=== PATIENT | female | born 1990 | race Hispanic/Latino ===

== ENCOUNTER 2023-04-26 08:35 | Emergency (ER) | payer SELFPAY ==
--- OUTSIDE RECORDS SUMMARY | 2023-04-26 08:39 | XMS REPORT | Continuity of Care Document ---
Demographics Address [address] [place] [address] Mobile ) Email Address Preferred Language Malay; Castilian Marital Status Unknown Mosque Affiliation Unknown Race Unknown Additional Race(s) White Ethnic Group Unknown Author Name Unknown Address [address] [facility] [place] [address] [facility] [address] [facility] [address] [place] [address] Care Team Providers Care Research Microbiologist Name Role Phone Sallie Malik Primary Care Physicia n SALLIE LOMBARDO Attending Clinician Unavail able Sallie Malik Attending Clinician + Nurse, Clay Liocna Exp Cprit Obgyn Attending Clini antione Unavailable Doctor Unassigned, Frannie Attending Clinician U PATTI Pena Attending Clinician Unavaila ble [facility] Attending Clinician Unava Patti Joe CNM Attending Clinician [phone] NHAN JONES Attending Clinician Unavailab Nhan Rondon Attending Clinician + [phone] Leslie Schroeder Attending Clinician [phone] Girish Tavares DO Attending Clinician [phone] Merna Malik Attending Clinician [phone] Greg TUCKER, Sharla Attending Clinician + Betina Ibarra MD Attending Clinician [phone] Res-Colpo/Leep, [facility] Attending Clinician Un available David Steward MD Attending Clinician [phone] DAVID STEWARD Attending Clinician Unavailable LESLIE MONTES Attending Clinician Unavailabl e Payers Payer Name Policy Type Policy Number Effective Date Expirati on Date Source [employer] 0-100% [id number] 2023 00:00:00 Problems Condition Name Condition Details Condition Category Status Onset Date Resolution Date Last Treatment Date Treating Clinician Comments Source Atypical squamous cell changes of undetermin ed significan ce (ASCUS) on cervical cytology with negative high risk human papilloma virus (HPV) test result Atypical squamous cell changes of undetermin ed significan ce (ASCUS) on cervical cytology with negative high risk human papilloma virus (HPV) test result Disease Active 10-06 00:00: 00 Overview: Formattin g of this note might be different from the original. Will need repeat pap in 3 years 2023 [facility] Atypical squamous cell changes of undetermin ed significan ce (ASCUS) on vaginal cytology Atypical squamous cell changes of undetermin ed significan ce (ASCUS) on vaginal cytology Disease Active 09-20 00:00: 00 Overview: Formattin g of this note might be different from the original. colpo- no CINASCCP guideline s need pap at 12 and 24 months [facility] Other general counseling and advice for contracept gabe management Other general counseling and advice for contracept gabe management Disease Active 09-15 00:00: 00 [facility] Low grade squamous intraepith elial lesion on cytologic smear of cervix (LGSIL) Low grade squamous intraepith elial lesion on cytologic smear of cervix (LGSIL) Disease Active 09-15 00:00: 00 [facility] BMI 32.0-32.9, adult BMI 32.0-32.9, adult Disease Active 09-15 00:00: 00 [facility] Well woman exam Well woman exam Disease Active 08-22 00:00: 00 [facility] Breast lesion Breast lesion Disease Active 08-22 00:00: 00 [facility] Overweight (BMI 25.0-29.9) Overweight (BMI 25.0-29.9) Disease Active 08-22 00:00: 00 [facility] BMI 28.0-28.9, adult BMI 28.0-28.9, adult Disease Active 08-22 00:00: 00 [facility] Depo-Prove ra contracept gabe status Depo-Prove ra contracept gabe status Disease Active 08-22 00:00: 00 [facility] Papanicola ou smear of cervix with low grade squamous intraepith elial lesion (LGSIL) Papanicola ou smear of cervix with low grade squamous intraepith elial lesion (LGSIL) Disease Active 2016-05 00:00: 00 [facility] Class 1 obesity with body mass index (BMI) of 30.0 to 30.9 in adult, unspecifie d obesity type, unspecifie d whether serious comorbidit y present Class 1 obesity with body mass index (BMI) of 30.0 to 30.9 in adult, unspecifie d obesity type, unspecifie d whether serious comorbidit y present Disease Active 2016-05 00:00: 00 [facility] Allergies, Adverse Reactions, Alerts Allergy Name Allergy Type Status Severity Reaction(s) Onset Date Inactive Date Treating Clinician Comments Source NO KNOWN ALLERGIE S Drug Class Active [facility] Social History Social Habit Start Date Stop Date Quantity Comments [facility] 2023-02-14 00:00:00 2023-02-14 00:00:00 Current non-drinker of alcohol (finding) [facility] Exposure to SARS-CoV-2 (event) 2022-09-08 00:00:00 2022-09-18 09:30:00 Not sure [facility] Tobacco use and exposure 2022-05-11 00:00:00 2022-05-11 00:00:00 Smokeless tobacco non-user [facility] History of Social function 2021-08-24 00:00:00 2021-08-24 00:00:00 [facility] Sex Assigned At 1990 00:00:00 1990 00:00:00 [facility] Smoking Status Start Date Stop Date Source Never smoked tobacco [facility] Medications Ordered Medication Name Filled Medication Name Start Date Stop Date Current Medication? Ordering Clinician Indication Dosage Frequency Signature (SIG) Comments Components Source medroxyPROG ESTERone (DEPO-PROVE RA) syringe 150 mg 2022-02-14 16:30: 00 01-15 16:29 :00 Yes [id number] 150mg [facility] medroxyPROG ESTERone (DEPO-PROVE RA) syringe 150 mg 2022-02-14 16:30: 00 01-15 16:29 :00 Yes [id number] 150mg 150 mg, Intramuscu lar, [id number], 4 doses, First dose on Yanet 02/14/23 at 1130, Last dose on Sat10/24/23 at 1130, Routine [facility] medroxyPROG ESTERone (DEPO-PROVE RA) syringe 150 mg 2022-02-14 16:30: 00 01-15 16:29 :00 Yes [id number] 150mg [facility] medroxyPROG ESTERone (DEPO-PROVE RA) syringe 150 mg 2022-02-14 16:30: 00 01-15 16:29 :00 Yes [id number] 150mg 150 mg, Intramuscu lar, [id number], 4 doses, First dose on Yanet 02/14/23 at 1130, Last dose on Sat10/24/23 at 1130, Routine [facility] medroxyPROG ESTERone (DEPO-PROVE RA) syringe 150 mg 2021-0 02-16 16:15: 00 10-26 16:14 :00 No [id number] 150mg [facility] medroxyPROG ESTERone (DEPO-PROVE RA) syringe 150 mg 2-0 02-16 16:15: 00 10-26 16:14 :00 No [id number] 150mg 150 mg, Intramuscu lar, [id number], 3 doses, First dose on Sat02/16/22 at 1115, Last dose on Sat08/03/22 at 1115, Routine [facility] medroxyPROG ESTERone (DEPO-PROVE RA) syringe 150 mg 2-0 9-30 16:15: 00 10-26 16:14 :00 No [id number] 150mg [facility] medroxyPROG ESTERone (DEPO-PROVE RA) syringe 150 mg 2-0 9-30 16:15: 00 10-26 16:14 :00 No [id number] 150mg 150 mg, Intramuscu lar, [id number], 3 doses, First dose on Sat02/16/22 at 1115, Last dose on Sat08/03/22 at 1115, Routine [facility] medroxyPROG ESTERone (DEPO-PROVE RA) syringe 150 mg 2-0 9-30 16:15: 00 10-26 16:14 :00 No [id number] 150mg [facility] medroxyPROG ESTERone (DEPO-PROVE RA) syringe 150 mg 2021-0 -30 16:15: 00 10-26 16:14 :00 No [id number] 150mg 150 mg, Intramuscu lar, [id number], 3 doses, First dose on Sat02/16/22 at 1115, Last dose on Sat08/03/22 at 1115, Routine [facility] medroxyPROG ESTERone (DEPO-PROVE RA) syringe 150 mg 2021-0 30 16:15: 00 08-03 14:20 :00 No [id number] 150mg [facility] medroxyPROG ESTERone (DEPO-PROVE RA) syringe 150 mg 2-0 30 16:15: 00 08-03 14:20 :00 No [id number] 150mg 150 mg, Intramuscu lar, [id number], 3 doses, First dose on Sat02/16/22 at 1115, Last dose on Sat08/03/22 at 1115, Routine [facility] medroxyPROG ESTERone (DEPO-PROVE RA) injection 150 mg 2022-0 7-07 15:30: 00 11-24 21:02 :26 No [id number] 150mg [facility] s [facility]y of [facility] medroxyPROG ESTERone (DEPO-PROVE RA) injection 150 mg 2022-0 7-07 15:30: 00 11-24 21:02 :26 No [id number] 150mg [facility]iver [facility]y of [facility] medroxyPROG ESTERone (DEPO-PROVE RA) injection 150 mg 08-22 15:30: 00 Yes [id number] 150mg [facility] medroxyPROG ESTERone (DEPO-PROVE RA) injection 150 mg 08-22 15:30: 00 Yes [id number] 150mg 150 mg, Intramuscu lar, [id number], First dose on Sat08/22/18 at 1030, Until Discontinu ed, Routine [facility] medroxyPROG ESTERone (DEPO-PROVE RA) injection 150 mg 08-22 15:30: 00 Yes [id number] 150mg [facility] medroxyPROG ESTERone (DEPO-PROVE RA) injection 150 mg 08-22 15:30: 00 Yes [id number] 150mg 150 mg, Intramuscu lar, [id number], First dose on Sat08/22/18 at 1030, Until Discontinu ed, Routine [facility] medroxyPROG ESTERone (DEPO-PROVE RA) injection 150 mg 08-22 15:30: 00 Yes [id number] 150mg [facility] medroxyPROG ESTERone (DEPO-PROVE RA) injection 150 mg 08-22 15:30: 00 Yes [id number] 150mg [facility] medroxyPROG ESTERone (DEPO-PROVE RA) injection 150 mg 08-22 15:30: 00 Yes [id number] 150mg [facility] medroxyPROG ESTERone (DEPO-PROVE RA) injection 150 mg 08-22 15:30: 00 Yes [id number] 150mg [facility] medroxyPROG ESTERone (DEPO-PROVE RA) injection 150 mg 08-22 15:30: 00 Yes [id number] 150mg [facility] medroxyPROG ESTERone (DEPO-PROVE RA) injection 150 mg 08-22 15:30: 00 Yes [id number] 150mg [facility] medroxyPROG ESTERone (DEPO-PROVE RA) injection 150 mg 08-22 15:30: 00 Yes [id number] 150mg [facility] medroxyPROG ESTERone (DEPO-PROVE RA) injection 150 mg 08-22 15:30: 00 Yes [id number] 150mg 150 mg, Intramuscu lar, [id number], First dose on Sat08/22/18 at 1030, Until Discontinu ed, Routine [facility] medroxyPROG ESTERone (DEPO-PROVE RA) injection 150 mg 08-22 15:30: 00 Yes [id number] 150mg [facility] medroxyPROG ESTERone (DEPO-PROVE RA) injection 150 mg 08-22 15:30: 00 Yes [id number] 150mg [facility] medroxyPROG ESTERone (DEPO-PROVE RA) injection 150 mg 08-22 15:30: 00 Yes [id number] 150mg [facility] medroxyPROG ESTERone (DEPO-PROVE RA) injection 150 mg 08-22 15:30: 00 Yes [id number] 150mg [facility] medroxyPROG ESTERone (DEPO-PROVE RA) injection 150 mg 08-22 15:30: 00 Yes [id number] 150mg [facility] Immunizations Ordered Immunization Name Filled Immunization Name Date Status Comments Source HPV9 2022-09-18 00:00:00 Completed [facility] HPV9 2022-09-18 00:00:00 Completed [facility] HPV9 2022-08-03 00:00:00 Completed [facility] HPV9 2022-08-03 00:00:00 Completed [facility] HPV9 2022-08-03 00:00:00 Completed [facility] Influenza Virus Vaccine Quad .5 mL IM 6+ MO 2020-03-31 00:00:00 Completed [facility] Influenza Virus Vaccine Quad .5 mL IM 6+ MO 2020-03-31 00:00:00 Completed [facility] Influenza Virus Vaccine Quad .5 mL IM 6+ MO 2020-03-31 00:00:00 Completed [facility] Influenza Virus Vaccine Quad .5 mL IM 6+ MO 2020-03-31 00:00:00 Completed [facility] Influenza Virus Vaccine Quad .5 mL IM 6+ MO 2020-03-31 00:00:00 Completed [facility] Influenza Virus Vaccine Quad .5 mL IM 6+ MO 2020-03-31 00:00:00 Completed [facility] Influenza Virus Vaccine Quad .5 mL IM 6+ MO 2020-03-31 00:00:00 Completed [facility] Influenza Virus Vaccine Quad .5 mL IM 6+ MO 2020-03-31 00:00:00 Completed [facility] Influenza Virus Vaccine Quad .5 mL IM 6+ MO 2020-03-31 00:00:00 Completed [facility] TDAP 2017-06-12 00:00:00 Completed [facility] TDAP 2017-06-12 00:00:00 Completed [facility] TDAP 2017-06-12 00:00:00 Completed [facility] TDAP 2017-06-12 00:00:00 Completed [facility] TDAP 2017-06-12 00:00:00 Completed [facility] TDAP 2017-06-12 00:00:00 Completed [facility] TDAP 2017-06-12 00:00:00 Completed [facility] TDAP 2017-06-12 00:00:00 Completed [facility] TDAP 2017-06-12 00:00:00 Completed [facility] Influenza Virus Vaccine Quad IM 3+ YRS 2017-03-14 00:00:00 Completed [facility] Influenza Virus Vaccine Quad IM 3+ YRS 2017-03-14 00:00:00 Completed [facility] Influenza Virus Vaccine Quad IM 3+ YRS 2017-03-14 00:00:00 Completed [facility] Influenza Virus Vaccine Quad IM 3+ YRS 2017-03-14 00:00:00 Completed [facility] Influenza Virus Vaccine Quad IM 3+ YRS 2017-03-14 00:00:00 Completed [facility] Influenza Virus Vaccine Quad IM 3+ YRS 2017-03-14 00:00:00 Completed [facility] Influenza Virus Vaccine Quad IM 3+ YRS 2017-03-14 00:00:00 Completed [facility] Influenza Virus Vaccine Quad IM 3+ YRS 2017-03-14 00:00:00 Completed [facility] Influenza Virus Vaccine Quad IM 3+ YRS 2017-03-14 00:00:00 Completed [facility] PPD (TB) 2009-11-01 00:00:00 Completed [facility] PPD (TB) 2009-11-01 00:00:00 Completed [facility] PPD (TB) 2009-11-01 00:00:00 Completed [facility] PPD (TB) 2009-11-01 00:00:00 Completed [facility] PPD (TB) 2009-11-01 00:00:00 Completed [facility] PPD (TB) 2009-11-01 00:00:00 Completed [facility] PPD (TB) 2009-11-01 00:00:00 Completed [facility] PPD (TB) 2009-11-01 00:00:00 Completed [facility] PPD (TB) 2009-11-01 00:00:00 Completed [facility] PPD (TB) Unknown Completed [facility] Influenza Virus Vaccine Quad IM 3+ YRS Unknown Completed [facility] TDAP Unknown Completed [facility] Influenza Virus Vaccine Quad .5 mL IM 6+ MO (FLUZONE/FLULAVAL/F LUARIX) Unknown Completed [facility] HPV9 Unknown Completed [facility] HPV9 Unknown Completed [facility] PPD (TB) Unknown Completed [facility] Influenza Virus Vaccine Quad IM 3+ YRS Unknown Completed [facility] TDAP Unknown Completed [facility] Influenza Virus Vaccine Quad .5 mL IM 6+ MO (FLUZONE/FLULAVAL/F LUARIX) Unknown Completed [facility] HPV9 Unknown Completed [facility] HPV9 Unknown Completed [facility] HPV9 Unknown Completed [facility] PPD (TB) Unknown Completed [facility] Influenza Virus Vaccine Quad IM 3+ YRS Unknown Completed [facility] TDAP Unknown Completed [facility] PPD (TB) Unknown Completed [facility] Influenza Virus Vaccine Quad IM 3+ YRS Unknown Completed [facility] TDAP Unknown Completed [facility] Influenza Virus Vaccine Quad .5 mL IM 6+ MO (FLUZONE/FLULAVAL/F LUARIX) Unknown Completed [facility] HPV9 Unknown Completed [facility] HPV9 Unknown Completed [facility] HPV9 Unknown Completed [facility] PPD (TB) Unknown Completed [facility] Influenza Virus Vaccine Quad IM 3+ YRS Unknown Completed [facility] TDAP Unknown Completed [facility] Influenza Virus Vaccine Quad .5 mL IM 6+ MO (FLUZONE/FLULAVAL/F LUARIX) Unknown Completed [facility] HPV9 Unknown Completed [facility] HPV9 Unknown Completed [facility] HPV9 Unknown Completed [facility] Vital Signs Vital Name Observation Time Observation Value Comments S ource Systolic blood pressure 2023-02-14 15:02:00 119 mm[Hg] [facility] Diastolic blood pressure 2023-02-14 15:02:00 62 mm[Hg] [facility] Heart rate 2023-02-14 15:02:00 81 /min [facility] Body temperature 2023-02-14 15:02:00 36.22 [place] [facility] Respiratory rate 2023-02-14 15:02:00 18 /min [facility] Body height 2023-02-14 15:02:[address] [facility] Body weight 2023-02-14 15:02:[address] [facility] BMI 2023-02-14 15:02:00 38.43 kg/m2 [facility] Systolic blood pressure 2022-11-08 18:48:00 114 mm[Hg] [facility] Diastolic blood pressure 2022-11-08 18:48:00 68 mm[Hg] [facility] Heart rate 2022-11-08 18:48:00 96 /min [facility] Body temperature 2022-11-08 18:48:00 36.72 [place] [facility] Respiratory rate 2022-11-08 18:48:00 17 /min [facility] Body height 2022-11-08 18:48:00 143.5 cm [facility] Body weight 2022-11-08 18:48:[address] [facility] BMI 2022-11-08 18:48:00 37.40 kg/m2 [facility] Body temperature 2022-09-18 14:38:00 36.5 [place] [facility] Body weight 2022-09-18 14:38:00 75.297 kg [facility] BMI 2022-09-18 14:38:00 37.22 kg/m2 [facility] Body temperature 2022-08-03 14:35:00 36.17 [place] [facility] Respiratory rate 2022-08-03 14:35:00 18 /min [facility] Body weight 2022-08-03 14:35:00 75.297 kg [facility] BMI 2022-08-03 14:35:00 37.22 kg/m2 [facility] Systolic blood pressure 2022-08-03 14:25:00 106 mm[Hg] [facility] Diastolic blood pressure 2022-08-03 14:25:00 73 mm[Hg] [facility] Heart rate 2022-08-03 14:25:00 85 /min [facility] Body temperature 2022-08-03 14:25:00 36.17 [place] [facility] Respiratory rate 2022-08-03 14:25:00 17 /min [facility] Body height 2022-08-03 14:25:00 142.2 cm [facility] Body weight 2022-08-03 14:25:[address] [facility] BMI 2022-08-03 14:25:00 37.37 kg/m2 [facility] Systolic blood pressure 2022-05-11 15:24:00 112 mm[Hg] [facility] Diastolic blood pressure 2022-05-11 15:24:00 66 mm[Hg] [facility] Heart rate 2022-05-11 15:24:00 78 /min [facility] Body temperature 2022-05-11 15:24:00 36.78 [place] [facility] Respiratory rate 2022-05-11 15:24:00 18 /min [facility] Body height 2022-05-11 15:24:[address] [facility] Body weight 2022-05-11 15:24:[address] [facility] BMI 2022-05-11 15:24:00 35.58 kg/m2 [facility] Systolic blood pressure 2022-02-16 15:24:00 126 mm[Hg] [facility] Diastolic blood pressure 2022-02-16 15:24:00 81 mm[Hg] [facility] Heart rate 2022-02-16 15:24:00 77 /min [facility] Body temperature 2022-02-16 15:24:00 36.67 [place] [facility] Respiratory rate 2022-02-16 15:24:00 18 /min [facility] Body height 2022-02-16 15:24:[address] [facility] Body weight 2022-02-16 15:24:[address] [facility] BMI 2022-02-16 15:24:00 34.97 kg/m2 [facility] Systolic blood pressure 2021-11-23 14:40:00 117 mm[Hg] [facility] Diastolic blood pressure 2021-11-23 14:40:00 69 mm[Hg] [facility] Heart rate 2021-11-23 14:40:00 73 /min [facility] Body temperature 2021-11-23 14:40:00 36.17 [place] [facility] Respiratory rate 2021-11-23 14:40:00 20 /min [facility] Body height 2021-11-23 14:40:[address] [facility] Body weight 2021-11-23 14:40:[address] [facility] BMI 2021-11-23 14:40:00 35.98 kg/m2 [facility] Procedures Procedure Date / Time Performed Performing Clinicia n Source GC & CHLAMYDIA AMPLIFIED ASSAY 2023-02-14 16:18:00 Sallie Lombardo [facility] HIV 1/2 AG-AB WITH REFLEX 2023-02-14 15:53:00 Sallie Lombardo [facility] SYPHILIS IGG/IGM 2023-02-14 15:53:00 Shaye Lombardo [facility] GARDASIL 9 (HPV 9V) VACCINE 2023-02-14 15:16:55 Sallie Lombardo [facility] POCT TEST 2023-02-14 15:05:00 Charan Lombardo [facility] CONSENT/REFUSAL FOR DIAGNOSIS AND TREATMENT 2023-02-14 14:42:49 Doctor Unassigned, Frannie [facility] GARDASIL 9 (HPV 9V) VACCINE 2022-09-18 14:47:13 Sallie Lombardo [facility] GARDASIL 9 (HPV 9V) VACCINE 2022-08-03 14:37:32 Sallie Lombardo [facility] GC & CHLAMYDIA AMPLIFIED ASSAY 2021-11-23 15:30:00 Sallie Lombardo [facility] HIV 1/2 AG-AB WITH REFLEX 2021-11-23 15:30:00 Sallie Lombardo [facility] GALV ONLY - SYPHILIS IGG/IGM 2021-11-23 15:30:00 Sallie Lombardo [facility] Encounters Start Date/Time End Date/Time Encounter Type Admission Type Attending [facility] Care Department Encounter ID Source 2023-05-10 14:45:00 2023-05-10 14:45:00 Outpatient R SALLIE LOMBARDO [facility] [id number] [facility] 2023-02-26 17:02:42 2023-02-26 17:02:42 Outpatient [facility] [id number] Gildardo Long 2023-02-14 10:15:00 2023-02-14 10:54:22 Outpatient R SALLIE LOMBARDO [facility] [id number] [facility] 2023-02-14 10:15:00 2023-02-14 10:54:22 Office Visit Sallie Lombardo [facility] WET INSPECTOR [facility] MATERNAL & CHILD [facility] [id number] [facility] 2023-02-14 10:15:00 2023-02-14 10:54:10 Outpatient R SALLIE LOMBARDO [facility] [id number] [facility] 2023-02-14 10:15:00 2023-02-14 10:30:00 Nurse Visit Nurse, Clay Rmchp Exp Cprit Obgyn Sallie Lombardo [facility] WET INS[employer] [facility] [place] [facility] MATERNAL & CHILD [facility]ALTH [facility] [id number] 350.1.13.10 4.2.7.2.686 [id number] 107 [id number] [facility] 2023-02-14 00:00:00 2023-02-14 00:00:00 Orders Only Doctor Unassigned, Frannie [facility] 1.840.114 350.1.13.10 4.2.7.2.686 [id number] [facility] 2023-02-03 08:04:48 2023-02-03 08:04:48 Outpatient SFA SFA [id number] Gildardo Long 2023-01-31 14:00:00 2023-01-31 14:00:00 Outpatient R PATTI PAPPAS [facility] [id number] [facility] 2023-01-27 08:42:34 2023-01-27 08:42:34 Outpatient SFA SFA [id number] Gildardo Allen Ethan 2023-01-08 08:14:46 2023-01-08 08:14:46 Outpatient SFA SFA [id number] Gildardo Allen Ethan 2023-01-07 16:03:09 2023-01-07 16:03:09 Outpatient SFA SFA [id number] Gildardo Allen Ethan 2023-01-01 09:02:43 2023-01-01 09:02:43 Outpatient SFA SFA [id number] Gildardo Allen Ethan 2022-12-06 16:49:17 2022-12-06 16:49:17 Outpatient SFA [facility] [id number] Gildardo Long 2022-12-05 15:11:24 2022-12-05 15:11:24 Outpatient SFA [facility] [id number] Gildardo Long 2022-11-08 14:00:00 2022-11-08 14:00:00 Nurse Visit Visit, ElidiaRmchjose miguel Nurse Sallie Lombardo [facility] WET INSPECTOR [employer] [facility] ..840.114 350.1.13.10 4.2.7.2.686 [id number] [facility] 2022-11-08 14:00:00 2022-11-08 13:59:01 Outpatient R LIZZY LOMBARDOILOLA [facility] [id number] [facility] 2022-11-07 09:33:25 2022-11-07 09:33:25 Outpatient SFA [facility] [id number] Gildardo Long 2022-11-06 10:30:00 2022-11-06 10:30:00 Outpatient R JUAN ANTONIO SALLIE [facility] [id number] [facility] 2022-09-26 09:04:23 2022-09-26 09:04:23 Outpatient SFA [facility] [id number] Gildardo Long 2022-09-18 09:45:00 2022-09-18 10:00:00 Nurse Visit Nurse, Clay Meyerp Exp Cprit Obgyn Sallie Lombardo [facility] WET INSPECT[employer] [facility] ..840.114 350.1.13.10 4.2.7.2.686 [id number] 107 [id number] [facility] 2022-09-18 09:45:00 2022-09-18 09:49:42 Outpatient R JUAN ANTONIO SALLIE NDMB [facility] [id number] [facility] 2022-09-17 09:00:00 2022-09-17 09:00:00 Outpatient R OLIVERIOSISALLIE ALARCON [facility] [id number] [facility] 2022-08-29 08:51:38 2022-08-29 08:51:38 Outpatient SFA SFA [id number] Gildardo Long 2022-08-03 09:45:00 2022-08-03 09:45:00 Nurse Visit Nurse, Clay Licona Exp Cprit Obgyn Sallie Lombardo [facility] WET INSPECT[employer] [facility] 1.2.840.114 350.1.13.10 4.2.7.2.686 [id number] [facility] 2022-08-03 09:45:00 2022-08-03 09:32:[address] [facility] [id number] [facility] 2022-08-03 09:30:00 2022-08-03 09:32:35 Nurse Visit Visit, Patti Figueroa [facility] WET INSPECT[employer] [facility] 1.2.840.114 350.1.13.10 4.2.7.2.686 [id number] [facility] 2022-08-03 09:30:00 2022-08-03 09:30:[address] [facility] [id number] [facility] 2022-07-31 09:05:39 2022-07-31 09:05:39 Outpatient SFA SFA [id number] Gildardo Long 2022-07-04 13:14:06 2022-07-04 13:14:06 Outpatient SFA SFA [id number] Gildardo Allen Ethan 2022-06-28 11:02:34 2022-06-28 11:02:34 Outpatient SFA SFA [id number] Gildardo Long 2022-06-27 10:50:18 2022-06-27 10:50:18 Outpatient SFA SFA [id number] Gildardo Allen Ethan 2022-05-11 09:30:00 2022-05-11 09:30:00 Nurse Visit Visit, Clay-Livan Nurse Sallie Lombardo [facility] WET INSPECTOR [employer] [facility] 1..840.114 350.1.13.10 4.2.7.2.686 [id number] [facility] 2022-05-11 09:30:00 2022-05-11 09:22:41 Outpatient R SALLIE LOMBARDO [facility] [id number] [facility] 2022-02-16 10:00:00 2022-02-16 10:14:31 Nurse Visit Visit, Zulema Nurse Sallie Lombardo [facility] WET INSPECTOR [employer] [facility] ..840.114 350.1.13.10 4.2.7.2.686 [id number] [facility] 2022-02-16 09:30:00 2022-02-16 09:30:00 Outpatient R SALLIE LOMBARDO [facility] [id number] [facility] 2022-02-15 10:30:00 2022-02-15 10:30:[address] [facility] [id number] [facility] 2022-02-15 10:00:00 2022-02-15 10:00:[address] [facility] [id number] [facility] 2021-11-23 09:30:00 2021-11-23 10:36:32 Office Visit Sallie Lombardo [facility] ..840.114 350.1.13.10 4.2.7.2.686 [id number] 107 [id number] [facility] 2021-11-23 09:30:00 2021-11-23 10:36:32 Outpatient R SALLIE LOMBARDO [facility] [id number] [facility] 2021-11-23 09:30:00 2021-11-23 09:30:00 Outpatient R SALLIE LOMB[address] [facility] [id number] [facility] 2021-11-23 09:30:00 2021-11-23 09:30:00 Outpatient R SALLIE LOMBARDO [facility] [id number] [facility] 2021-11-23 00:00:00 2021-11-23 00:00:00 Orders Only Doctor Unassigned, Frannie [facility] 1..840.114 350.1.13.10 4.2.7.2.686 [id number] [facility] 2021-08-24 10:00:00 2021-08-24 10:00:[address] 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 [id number] [facility] 2021-03-09 09:00:00 2021-03-09 09:00:[address] [facility] [id number] [facility] 2021-03-09 08:42:01 2021-03-09 08:53:40 [facility] WET INSPECTOR [employer] [facility] 1..840.114 350.1.13.10 4.2.7.2.686 [id number] [facility] 2021-03-09 00:00:00 2021-03-09 00:00:00 Orders Only Doctor Unassigned, Frannie [facility] .840.114 350.1.13.10 4.2.7.2.686 [id number] [facility] 2021-03-08 13:30:00 2021-03-08 13:30:[address] [facility] [id number] [facility] 2021-03-06 10:00:00 2021-03-06 10:00:[address] [facility] [id number] [facility] 2021-03-01 08:15:00 2021-03-01 08:15:00 Outpatient R SALLIE LOMBARDO 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 [id number] [facility] 2020-12-09 09:30:00 2020-12-09 09:30:[address] [facility] [id number] [facility] 2020-10-06 00:00:00 2020-10-06 00:00:00 Telephone Sallie Lombardo [facility] WET INSPECTOR [employer] [facility] 1..840.114 350.1.13.10 4.2.7.2.686 [id number] 107 [id number] [facility] 2020-09-16 14:08:46 2020-09-16 15:08:08 Office Visit Sallie Lombardo [facility] WET INSPECTOR [employer] [facility] 1.2.840.114 350.1.13.10 4.2.7.2.686 [id number] 107 [id number] [facility] 2020-09-16 14:15:00 2020-09-16 14:15:00 Outpatient R SALLIE LOM[address] [facility] [id number] [facility] 2020-09-15 09:30:00 2020-09-15 09:30:00 Outpatient R SALLIE [address]OM[address] [facility] [id number] [facility] 2020-08-09 00:00:00 2020-08-09 00:00:00 Patient Outreach Girish Tavares [facility] 1..840.114 350.1.13.10 4.2.7.2.686 [id number] [facility] 2020-06-23 10:00:00 2020-06-23 10:00:[address] [facility] [id number] [facility] 2020-06-23 09:04:48 2020-06-23 09:14:13 Nurse Visit Visit, Zulema Nurse Sallie Lombardo [facility] WET INSPECTOR [employer] [facility] 1.2.840.114 350.1.13.10 4.2.7.2.686 [id number] 107 [id number] [facility] 2020-06-23 09:04:48 2020-06-23 09:14:13 Nurse Visit Visit, Zulema Nurse [facility] WET INSPECTOR [employer] [facility] 1..114 350.1.13.10 4.2.7.2.686 [id number] 107 [id number] 2020-03-31 10:00:11 2020-03-31 10:17:52 [facility] Nhan Jones [facility] WET INSPECTOR [employer] [facility] 1.0.114 350.1.13.10 4.2.7.2.686 [id number] 107 [id number] [facility] 2020-03-31 10:00:11 2020-03-31 10:17:52 [facility] WET INSPECTOR [employer] [facility] 1..114 350.1.13.10 4.2.7.2.686 [id number] 2020-03-31 10:00:00 2020-03-31 10:00:[address] [facility] [id number] [facility] 2020-03-31 10:00:00 2020-03-31 10:00:[address] [facility] [id number] [facility] 2020-03-23 00:00:00 2020-03-23 00:00:00 Case Management [facility] .114 350.1.13.10 4.2.7.2.686 [id number] [facility] 2020-03-23 00:00:00 2020-03-23 00:00:00 Case Management [facility] ..114 350.1.13.10 4.2.7.2.686 [id number] 2020-03-02 00:00:00 2020-03-02 00:00:00 Letter (Out) Liu bro[facility] 1..114 350.1.13.10 4.2.7.2.686 [id number] [facility] 2020-03-02 00:00:00 2020-03-02 00:00:00 Patient Secure Msg Doctor Unassigned, Frannie [facility] 1.2.840.114 350.1.13.10 4.2.7.2.686 [id number] 113 [id number] [facility] 2020-03-02 00:00:00 2020-03-02 00:00:00 Letter (Out) Liu brooks [facility] 1.2840.114 350.1.13.10 4.2.7.2.686 [id number] 2020-03-01 00:00:00 2020-03-01 00:00:00 Case Management [facility] 1.2840.114 350.1.13.10 4.2.7.2.686 [id number] 113 [id number] [facility] 2020-03-01 00:00:00 2020-03-01 00:00:00 Telephone [facility] 1.2.840.114 350.1.13.10 4.2.7.2.686 [id number] [facility] 2020-03-01 00:00:00 2020-03-01 00:00:00 Telephone Liu brooks [facility] 1.2.840.114 350.1.13.10 4.2.7.2.686 [id number] 113 [id number] [facility] 2020-03-01 00:00:00 2020-03-01 00:00:00 Case Management [facility] 1.2.840.114 350.1.13.10 4.2.7.2.686 [id number] 113 [id number] 2020-03-01 00:00:00 2020-03-01 00:00:00 [facility] 1.0.114 350.1.13.10 4.2.7.2.686 [id number] 113 [id number] 2020-03-01 00:00:00 2020-03-01 00:00:00 [facility] 1.0.114 350.1.13.10 4.2.7.2.686 [id number] 113 [id number] 2020-02-23 09:57:27 2020-02-23 11:38:35 Office Visit Res-Colpo/L eep, [facility] David Steward [facility] 1.0.114 350.1.13.10 4.2.7.2.686 [id number] 113 [id number] [facility] 2020-02-23 09:57:27 2020-02-23 11:38:35 Office Visit Res-Colpo/L eep, [facility] 1.0.114 350.1.13.10 4.2.7.2.686 [id number] 2020-02-23 10:30:00 2020-02-23 10:30:[address] [facility] [id number] [facility] 2020-02-23 10:00:00 2020-02-23 10:00:00 Outpatient R DAVID STEWARD [facility] [id number] [facility] 2020-02-23 00:00:00 2020-02-23 00:00:00 Orders Only Doctor Unassigned, Frannie [facility] 1.0.114 350.1.13.10 4.2.7.2.686 [id number] [facility] 2020-01-07 14:32:55 2020-01-07 14:52:09 Nurse Visit Visit, [facility] Nurse Nhan Jones [facility] WET INSPECTOR [facility] [facility] 1.0.114 350.1.13.10 4.2.7.2.686 [id number] [facility] 2020-01-07 09:30:00 2020-01-07 09:30:[address] [facility] [id number] [facility] 2019-10-15 10:12:51 2019-10-15 10:28:47 Nurse Visit Visit, [facility] Nurse Nhan Jones [facility] WET INSPECTOR [employer] [facility] 1.2840.114 350.1.13.10 4.2.7.2.686 [id number] 107 [id number] [facility] 2019-10-15 09:30:00 2019-10-15 09:30:[address] [facility] [id number] [facility] 2019-09-21 00:00:00 2019-09-21 00:00:00 Telephone Nhan Jones [facility] WET INSPECTOR [employer] [facility] 1.840.114 350.1.13.10 4.2.7.2.686 [id number] 107 [id number] [facility] 2019-09-16 13:07:29 2019-09-16 14:11:35 Office Visit Nhan Jones Emily N [facility] WET INSPECTOR [employer] 1..840.114 350.1.13.10 4.2.7.2.686 [id number] [facility] 2019-09-16 13:00:00 2019-09-16 13:00:00 Outpatient R LESLIE MONTES [facility] [id number] [facility] 2019-09-16 00:00:00 2019-09-16 00:00:00 Orders Only Doctor Unassigned, Frannie [facility] 1.840.114 350.1.13.10 4.2.7.2.686 [id number] [facility] 2019-07-23 09:30:00 2019-07-23 09:30:00 Outpatient R MARCELO JONESARIS [facility] [id number] [facility] 2019-07-23 09:14:32 2019-07-23 09:26:26 Nurse Visit Visit, [facility] Ashleigh Jonesvanessa [facility] WET INSPECTOR [employer] [facility] 1.2.840.114 350.1.13.10 4.2.7.2.686 [id number] 107 [id number] [facility] 2019-02-05 10:25:47 2019-02-05 10:49:59 Nurse Visit Visit, [facility] 1.2.840.114 350.1.13.10 4.2.7.2.686 [id number] 107 [id number] [facility] 2019-01-12 00:00:00 2019-01-12 00:00:00 Orders Only Doctor Unassigned, Frannie [facility] 1.2.840.114 350.1.13.10 4.2.7.2.686 [id number] [facility] Results Test Description Test Time Test Comments Results Result Co mments Source [id number] 15:05:00* Test Item Value Reference Range Interpretation Comme nts POCT PREG (test code = 1605) Negative On board controls acceptable with C Line (test code = 3574) Yes POCT PREG LOT # (test code = 3575) POCT PREG TEST DATE ( test code = 3576) [facility], THIRD [id number] 05:09:59* Test Item Value Reference Range Interpretation Comme nts TSH, THIRD GENERATION (test code = 2821) 1.480 UIU/ML 0.400-4.100 UNLESS OTHERWISE INDICATED, ALL TESTING PERFORMED AT [facility] [address] [place] [address] OD GRINDER OPERATOR: SCOT NELSON M.D. CLIA NUMBER [id number] [facility] [place]. [id number] LIPID [id number] 02:59:57* Test Item Value Reference Range Interpretation Comme nts CHOLESTEROL (test code = 2210) 140 MG/DL <200 TRIGLYCERIDES (test code = 2232) 76 MG/DL <150 HDL CHOLESTEROL (test code = 2220) 39 MG/DL >39 L CALC LDL CHOL (test code = 2237) 84 MG/DL <100 NOTE: CALCULATED LDL IS BASED ON ARIANA-HERNANDEZ METHOD WHICHINCLUDES ADJUSTABLE TRIGLYCERIDE:VLDL CHOLESTEROL RATIO.THIS FACTOR VARIES BY MEASURED TRIGLYCERIDE AND NON-HDLCHOLESTEROL CONCENTRATIONS WITH INCREASED CALCULATED LDL SEENIN HIGHER TRIGLYCERIDE OR LOWER NON-HDL SPECIMENS. FOR MOREINFORMATION, SEE CLIENT ANNOUNCEMENT AT [email or web address] RISK RATIO LDL/HDL (test code = 223) 2.15 RATIO <3.22 COMPREHENSIVE METABOLIC [id number] 02:59:57* Test Item Value Reference Range Interpretation Comme nts GLUCOSE (test code = 2217) 99 MG/DL 70-99 BUN (test code = 2207) 11 MG/DL 6-20 CREATININE (test code = 2214) 0.74 MG/DL 0.60-1.30 eGFR (2020 CKD-EPI) (test code = 15572) 109 ML/MIN/1.73 >60 CALC BUN/CREAT (test code = 2235) 15 RATIO 6-28 SODIUM (test code = 2231) 139 MEQ/L 133-146 POTASSIUM (test code = 2228) 4.2 MEQ/L 3.5-5.4 CHLORIDE (test code = 2215) 105 MEQ/L 95-107 CARBON DIOXIDE (test code = 2206) 28 MEQ/L 19-31 CALCIUM (test code = 2209) 9.4 MG/DL 8.5-10.5 PROTEIN, TOTAL (test code = 222) 7.1 G/DL 6.1-8.3 ALBUMIN (test code = 2201) 4.7 G/DL 3.5-5.2 CALC GLOBULIN (test code = 2240) 2.4 G/DL 1.9-3.7 CALC A/G RATIO (test code = 2234) 2.0 RATIO 1.0-2.6 BILIRUBIN, TOTAL (test code = 220) 0.5 MG/DL See_Comment [Automated me ssage] The system which generated this result transmitted reference range: <=1.2. The reference range was not used to interpret this result as normal/abnormal. ALKALINE PHOSPHATASE (test code = 2204) 94 U/L 40-114 AST (test code = 2218) 16 U/L 9-40 ALT (test code = 2219) 14 U/L 5-40 HEMOGLOBIN [id number] 02:59:41* Test Item Value Reference Range Interpretation Comme nts HEMOGLOBIN A1c (test code = 91397) 4.7 % 4.2-5.6 CBC W/AUTO DIFF WITH [id number] 02:00:38* Test Item Value Reference Range Interpretation Comme nts WBC (test code = 1001) 7.9 K/UL 3.5-11.0 RBC (test code = 1002) 3.96 M/UL 3.80-5.40 HEMOGLOBIN (test code = 1003) 11.5 G/DL 11.5-15.5 HEMATOCRIT (test code = 1004) 34.0 % 34.0-45.0 MCV (test code = 1005) 85.9 fL 80.0-99.0 MCH (test code = 1006) 29.0 PG 25.0-33.0 MCHC (test code = 1007) 33.8 G/DL 31.0-36.0 RDW (test code = 1038) 12.6 % 11.5-15.0 NEUTROPHILS (test code = 1008) 61.3 % LYMPHOCYTES (test code = 1010) 25.4 % MONOCYTES (test code = 1011) 9.1 % EOSINOPHILS (test code = 1012) 2.9 % BASOPHILS (test code = 1013) 1.0 % IMMATURE GRANULOCYTES (test code = 1036) 0.3 % NUCLEATED RBCS (test code = 1065) 0.0 /100 WBC'S See_Comment [Automated messa ge] The system which generated this result transmitted reference range: 0.0. The reference range was not used to interpret this result as normal/abnormal. PLATELET COUNT (test code = 1015) 347 K/UL 130-400 ABSOLUTE NEUTROPHILS (test code = 1066) 4.82 K/UL 1.50-7.50 ABSOLUTE LYMPHOCYTES (test code = 1067) 2.00 K/UL 1.00-4.00 ABSOLUTE MONOCYTES (test code = 1068) 0.72 K/UL 0.20-1.00 ABSOLUTE EOSINOPHILS (test code = 1040) 0.23 K/UL 0.00-0.50 ABSOLUTE BASOPHILS (test code = 1069) 0.08 K/UL 0.00-0.20 ABS IMMATURE GRANULOCYTES (test code = 1020) 0.02 K/UL 0.00-0.10 ABS NUCLEATED RBCS (test code = 00571) 0.00 K/UL 0.00-0.11 CBC W/AUTO DIFF WITH [id number] 04:00:57* Test Item Value Reference Range Interpretation Comme nts WBC (test code = 1001) 12.3 K/UL 3.5-11.0 H RBC (test code = 1002) 4.25 M/UL 3.80-5.40 HEMOGLOBIN (test code = 1003) 12.9 G/DL 11.5-15.5 HEMATOCRIT (test code = 1004) 36.7 % 34.0-45.0 MCV (test code = 1005) 86.4 fL 80.0-99.0 MCH (test code = 1006) 30.4 PG 25.0-33.0 MCHC (test code = 1007) 35.1 G/DL 31.0-36.0 RDW (test code = 1038) 13.2 % 11.5-15.0 NEUTROPHILS (test code = 1008) 62.4 % LYMPHOCYTES (test code = 1010) 26.4 % MONOCYTES (test code = 1011) 7.5 % EOSINOPHILS (test code = 1012) 2.7 % BASOPHILS (test code = 1013) 0.7 % IMMATURE GRANULOCYTES (test code = 1036) 0.3 % NUCLEATED RBCS (test code = 1065) 0.0 /100 WBC'S See_Comment [Automated message] The system which generated this result transmitted reference range: 0.0. The reference range was not used to interpret this result as normal/abnormal. PLATELET COUNT (test code = 1015) 303 K/UL 130-400 ABSOLUTE NEUTROPHILS (test code = 1066) 7.69 K/UL 1.50-7.50 H ABSOLUTE LYMPHOCYTES (test code = 1067) 3.25 K/UL 1.00-4.00 ABSOLUTE MONOCYTES (test code = 1068) 0.93 K/UL 0.20-1.00 ABSOLUTE EOSINOPHILS (test code = 1040) 0.33 K/UL 0.00-0.50 ABSOLUTE BASOPHILS (test code = 1069) 0.09 K/UL 0.00-0.20 ABS IMMATURE GRANULOCYTES (test code = 1020) 0.04 K/UL 0.00-0.10 ABS NUCLEATED RBCS (test code = 26586) 0.00 K/UL 0.00-0.11 UNLESS OTHER MEYER INDICATED, ALL TESTING PERFORMED AT [facility] [address] [place] [address] OD GRINDER OPERATOR: SCOT NELSON M.D. [place] NUMBER [id number] [facility] [place] [id number] [facility] ONLY - SYPHILIS [id number] 18:47:17* Test Item Value Reference Range Interpretation Comme nts Syphilis IgG/IgM (test code = 72233-2) Non-reactive Non-reactive SIRENA (test code = SIRENA) Non-reactive - No serologic evidence of T. pallidum infection. Cannot exclude incubating or early syphilis. Submit a second specimen in 2-4 weeks if syphilis is clinically suspected. Equivocal - Further testing to follow. Reactive - Further testing to follow. Lab Interpretation (test code = 64579-2) Normal [facility] ONLY - SYPHILIS [id number] 18:47:17* Test Item Value Reference Range Interpretation Comme nts Syphilis IgG/IgM (test code = 41515-1) Non-reactive Non-reactive SIRENA (test code = SIRENA) Non-reactive - No serologic evidence of T. pallidum infection. Cannot exclude incubating or early syphilis. Submit a second specimen in 2-4 weeks if syphilis is clinically suspected. Equivocal - Further testing to follow. Reactive - Further testing to follow. Lab Interpretation (test code = 02263-3) Normal [facility] 1/2 AG-AB WITH [id number] 06:19:42* Test Item Value Reference Range Interpretation Comme nts HIV Semi-quantitative (test code = 22082-6) Negative Negative SIRENA (test code = SIRENA) Non-reactive for HIV-1 antigen and HIV-1/HIV-2 antibodies. ?No laboratory evidence of HIV infection. ?Repeat in 2-4 weeks if acute HIV infection is suspected. [facility] 1/2 AG-AB WITH [id number] 06:19:42* Test Item Value Reference Range Interpretation Comme nts HIV Semi-quantitative (test code = 81299-4) Negative Negative SIRENA (test code = SIRENA) Non-reactive for HIV-1 antigen and HIV-1/HIV-2 antibodies. ?No laboratory evidence of HIV infection. ?Repeat in 2-4 weeks if acute HIV infection is suspected. [facility]
[2023-04-26] MEDS ORDERED: ACETAMINOPHEN 500 MG TAB ONE (08:57)
[2023-04-26 09:41] LABS: SARS-CoV-2 Antigen Rapid Res Negative (Negative)
--- NOTE | 2023-04-26 09:43 | ER ---
Nurse's Notes [facility] Name: Lisa Awad Age: 32 yrs Sex: Female : 1990 Arrival Date: 04/26/2023 Time: 08:35 Bed 14 Private MD: Diagnosis: Influenza B, streptococcal pharyngitis, febrile illness Presentation: 04/26 08:38 Chief complaint: Patient states: Chills, headache, ear pain, sore throat, fever, sinus nj1 pressure since yesterday. Took OTC medicine last night. 08:38 Coronavirus screen: Vaccine status: Patient reports being unvaccinated. Ebola Screen: nj1 Patient denies travel to an Ebola-affected area in the 21 days before illness onset. Initial Sepsis Screen: Does the patient meet any 2 criteria? Temp <36.0*C (96.8*F)) or > 38.3*C (100.9*F). HR > 90 bpm. Yes Does the patient have a suspected source of infection? Yes: Other: To be determined If YES to both, name of provider notified: Solitario Singh MD. Risk Assessment: Do you want to hurt yourself or someone else? Patient reports no desire to harm self or others. Onset of symptoms was April 25, 2023. 08:38 Method Of Arrival: Ambulatory [facility] 08:38 Acuity: SOCORRO 3 nj1 Historical: - Allergies: 08:52 No Known Allergies; nj1 - PMHx: 08:52 None; nj1 - Immunization history:: Client reports having NOT received the Covid vaccine. - Social history:: Smoking status: Patient denies any tobacco usage or history of. Screenin:08 [facility] ED Fall Risk Assessment (Adult) Score/Fall Risk Level 0 - 2 = Low Risk nj1 Oriented to surroundings, Maintained a safe environment, Hourly rounding (assess needs \T\ fall precautionary measures) done. Abuse screen: Denies threats or abuse. Denies injuries from another. Nutritional screening: No deficits noted. Tuberculosis screening: No symptoms or risk factors identified. Assessment: 08:40 General: Appears in no apparent distress. uncomfortable, Behavior is calm, cooperative, nj1 appropriate for age. 08:40 Pain: Complains of pain in head, throat. Neuro: Level of Consciousness is awake, alert, nj1 obeys commands, Oriented to person, place, time, situation. Cardiovascular: Patient's skin is warm and dry. Respiratory: Airway is patent Respiratory effort is even, unlabored. GI: Reports diarrhea. EENT: Reports sore throat. 10:00 Reassessment: Patient appears in no apparent distress at this time. Patient and/or nj1 family updated on plan of care and expected duration. Pain level reassessed. Patient is alert, oriented x 3, equal unlabored respirations, skin warm/dry/pink. Patient denies pain at this time. Patient states feeling better. Patient states symptoms have improved. Vital Signs: 08:38 BP 115 / 79; Pulse 133; Resp 18; Temp 102; Pulse Ox 98% on R/A; Weight 72.57 kg; Height nj1 4 ft. 11 in. ; 09:53 BP 114 / 60; Pulse 107; Resp 16; Temp 98.9(O); Pulse Ox 96% on R/A; nj1 08:38 Body Mass Index 32.32 (72.57 kg, 149.86 cm) [facility] ED Course: 08:37 Patient arrived in ED. im 08:40 Patient has correct armband on for positive identification. Bed in low position. Call dc1 light in reach. Provided Education on: call light, fall precautions. 08:41 Solitario Singh MD is Attending Physician. sp3 08:41 Leslie Thomas, RN is Primary Nurse. nj1 08:52 Triage completed. nj1 08:53 Arm band placed on. nj1 09:31 CXR XRAY In Process Unspecified. EDMS 10:00 No provider procedures requiring assistance completed. Patient did not have IV access nj during this emergency room visit. Administered Medications: 08:44 Drug: Acetaminophen PO 1000 mg PO once Route: PO; nj1 10:00 Follow up: Response: No adverse reaction; Temperature is decreased; Pain is decreased nj1 Medication: 10:00 VIS not applicable for this client. nj1 Outcome: 09:43 Discharge ordered by . sp3 10:00 Discharged to home ambulatory, nj1 10:00 Condition: stable 10:00 Discharge instructions given to patient, Instructed on discharge instructions, follow up and referral plans. medication usage, Demonstrated understanding of instructions, follow-up care, medications, 10:01 Patient left the ED. nj1 Signatures: Dispatcher [employer] EDMS Singh, Setul, MD MD sp3 Leslie Thomas RN RN nj1 Sarah Bolivar Corrections: (The following items were deleted from the chart) 09:59 09:53 Pulse 107bpm; Resp 16bpm; Pulse Ox 96% RA; nj1 nj1
--- NOTE | 2023-04-26 09:43 | EDPHYS ---
Physician Documentation [facility] Name: Lisa Awad Age: 32 yrs Sex: Female : 1990 Arrival Date: 04/26/2023 Time: 08:35 Bed 14 Private MD: ED Physician Solitario Singh HPI: 04/26 09:05 This 32 yrs old Female presents to ER via Ambulatory with complaints of Flu sp3 Symptoms. 09:05 32-year-old female with no past medical history presents with chief complaint fever, sp3 sore throat, cough, congestion for 2 days. She denies chest pain, shortness of breath, back pain, abdominal pain, vomiting, diarrhea, rash, known sick contacts, travel history or any other signs or symptoms on ROS at this time.. Historical: - Allergies: 08:52 No Known Allergies; nj1 - PMHx: 08:52 None; nj1 - Immunization history:: Client reports having NOT received the Covid vaccine. - Social history:: Smoking status: Patient denies any tobacco usage or history of. ROS: 09:05 Eyes: Negative for injury, pain, redness, and discharge, ENT: Negative for injury, sp3 pain, and discharge, Neck: Negative for injury, pain, and swelling, Cardiovascular: Negative for chest pain, palpitations, and edema, Abdomen/GI: Negative for abdominal pain, nausea, vomiting, diarrhea, and constipation, Back: Negative for injury and pain, MS/Extremity: Negative for injury and deformity, Skin: Negative for injury, rash, and discoloration, Neuro: Negative for headache, weakness, numbness, tingling, and seizure, Psych: Negative for depression, anxiety, suicide ideation, homicidal ideation, and hallucinations, Allergy/Immunology: Negative for hives, rash, and allergies, Endocrine: Negative for neck swelling, polydipsia, polyuria, polyphagia, and marked weight changes, Hematologic/Lymphatic: Negative for swollen nodes, abnormal bleeding, and unusual bruising, 09:05 All other systems are negative, Exam: 09:06 Constitutional: This is a well developed, well nourished patient who is awake, alert, sp3 and in no acute distress. Head/Face: Normocephalic, atraumatic. Eyes: Pupils equal round and reactive to light, extra-ocular motions intact. Lids and lashes normal. Conjunctiva and sclera are non-icteric and not injected. Cornea within normal limits. Periorbital areas with no swelling, redness, or edema. Chest/axilla: Normal chest wall appearance and motion. Nontender with no deformity. No lesions are appreciated. Abdomen/GI: Soft, non-tender, with normal bowel sounds. No distension or tympany. No guarding or rebound. No evidence of tenderness throughout. Back: No spinal tenderness. No costovertebral tenderness. Full range of motion. Skin: Warm, dry with normal turgor. Normal color with no rashes, no lesions, and no evidence of cellulitis. MS/ Extremity: Pulses equal, no cyanosis. Neurovascular intact. Full, normal range of motion. Neuro: Awake and alert, GCS 15, oriented to person, place, time, and situation. Cranial nerves II-XII grossly intact. Motor strength 5/5 in all extremities. Sensory grossly intact. Cerebellar exam normal. Normal gait. Psych: Awake, alert, with orientation to person, place and time. Behavior, mood, and affect are within normal limits. 09:06 ENT: Pharyngeal erythema mild. 09:06 Cardiovascular: Tachycardia due to fever, 09:06 Respiratory: Active cough with coarse breath sounds bilaterally, Vital Signs: 08:38 BP 115 / 79; Pulse 133; Resp 18; Temp 102; Pulse Ox 98% on R/A; Weight 72.57 kg; Height nj1 4 ft. 11 in. ; 09:53 BP 114 / 60; Pulse 107; Resp 16; Temp 98.9(O); Pulse Ox 96% on R/A; nj1 08:38 Body Mass Index 32.32 (72.57 kg, 149.86 cm) nj MDM: 08:41 Patient medically screened. sp3 09:07 Data reviewed: vital signs, nurses notes, lab test result(s), radiologic studies. ED sp3 course: 32-year-old female with febrile URI illness. Differential diagnosis includes upper respiratory infection, viral syndrome, COVID-19, influenza, bronchitis, pneumonia, other viral illness, among others. Workup will include swabs and chest x-ray and antipyretics bring heart rate down. Likely discharge home on any indicated medications.. 09:42 ED course: Lab results demonstrate positive influenza and positive strep. We will place sp3 patient on Tamiflu and antibiotics and discharge her home with follow-up to PCP. Chest x-ray demonstrates no visible infiltrate.. 12 08:41 Order name: Flu; Complete Time: 09:42 sp3 04/26 08:41 Order name: SARS RAPID; Complete Time: 09:42 sp3 04/26 08:41 Order name: Strep; Complete Time: 09:42 sp3 12 09:03 Order name: CXR XRAY; Complete Time: 09:53 sp3 Administered Medications: 08:44 Drug: Acetaminophen PO 1000 mg PO once Route: PO; nj1 10:00 Follow up: Response: No adverse reaction; Temperature is decreased; Pain is decreased nj1 Disposition Summary: 04/26/23 09:43 Discharge Ordered Notes: Location: Home sp3 Condition: Stable sp3 Diagnosis - Influenza B, streptococcal pharyngitis, febrile illness sp3 Followup: sp3 - With: Private Physician - When: Upon discharge from the Emergency Department - Reason: Continuance of care Discharge Instructions: - Discharge Summary Sheet sp3 - Influenza, Adult sp3 - Strep Throat, Adult sp3 Forms: - Medication Reconciliation Form sp3 - Thank You Letter sp3 - Antibiotic Education sp3 - Prescription Opioid Use sp3 - Patient Portal Instructions sp3 - Leadership Thank You Letter sp3 Prescriptions: - Augmentin 875-125 mg Oral Tablet - take 1 tablet ORAL route every 12 hours for 10 days; 20 tablet; Refills: 0, sp3 Product Selection Permitted - Tamiflu 75 mg Oral capsule - take 1 tablet ORAL route every 12 hours for 5 days; 10 tablet; Refills: 0, sp3 Product Selection Permitted Signatures: Dispatcher [employer] Solitario Jansen MD MD sp3 Leslie Thomas RN RN nj1
--- NOTE | 2023-04-26 09:49 | RAD REPORT ---
EXAM DESCRIPTION: [place] Single View04/26/2023 9:29 am CLINICAL HISTORY: Cough COMPARISON: none FINDINGS: The lungs appear clear of acute infiltrate. The heart is normal size IMPRESSION: No acute abnormalities displayed
[2023-04-26 10:10] VITALS: BP 114/60; TEMP 98.9; O2SAT 96
== END 2023-04-26 10:01 | disposition home or self-care (01) ==
LOC: ER 08:35
DX: J10.1 Influenza due to other identified influenza virus with other respiratory manifestations (principal); J02.0 Streptococcal pharyngitis; Z11.52 Encounter for screening for COVID-19; Z28.310 Unvaccinated for COVID-19
CPT/HCPCS: 36415; 71045; 87081; 87804; 87811; 99283